=== PATIENT | female | born 1935 | race Two or more races ===

== ENCOUNTER 2020-06-30 07:39 | Outpatient (CLI) | payer OTHER | END 2020-06-30 07:44 | disposition home or self-care (01) | LOC: RX STUDY 07:39 | PROVIDERS: ATTEND Internal Medicine Gastroenterology | DX: R13.19 Other dysphagia (principal); K22.0 Achalasia of cardia ==

== ENCOUNTER → 2020-07-21 | Outpatient (CLI) | payer OTHER | END | disposition home or self-care (01) | LOC: TOM 07:41 | PROVIDERS: ATTEND Internal Medicine Gastroenterology | DX: R10.84 Generalized abdominal pain (principal); K56.600 Partial intestinal obstruction, unspecified as to cause ==